=== PATIENT | female | born 1990 | race Caucasian/White ===

== ENCOUNTER 2017-11-26 13:09 | Inpatient (IN) | payer OTHER ==
[~2017-11-26] VITALS: Ht 165.1 cm; Wt 198.0 kg
[~2017-11-26 13:09] MED LIST: SYNTHROID112 MCG; SYNTHROID112 MCG PO
[2017-11-30] MEDS ORDERED: PRENATAL 19 TA1 EACH PO (07:20)
== END 2017-12-02 17:05 | DRG 775 ==
LOC: LDR 11-30 06:13 → OB/GYN 11-30 13:47
PROC: 10E0XZZ Delivery of Products of Conception, External Approach (ICD-10-PCS; principal; 2017-11-30)
PROC: 0W8NXZZ Division of Female Perineum, External Approach (ICD-10-PCS; 2017-11-30)
PROC: 4A1HXCZ Monitoring of Products of Conception, Cardiac Rate, External Approach (ICD-10-PCS; 2017-11-30)
PROC: 4A033R1 Measurement of Arterial Saturation, Peripheral, Percutaneous Approach (ICD-10-PCS; 2017-11-30)
DX: O42.02 Full-term premature rupture of membranes, onset of labor within 24 hours of rupture (principal); Z3A.39 39 weeks gestation of pregnancy; Z37.0 Single live birth